=== PATIENT | male | born 1980 | race Caucasian/White ===

== ENCOUNTER 2021-01-22 11:44 | Emergency (ER) | payer OTHER ==
--- NOTE | 2021-01-22 13:32 | Event Note ---
ED Screening Note Date of service: 01/22/21 Time: 13:29 ED Screening Note: 40-year-old male patient with history of tobacco use, "borderline hypertension," and "blockage in the heart" presents emergency department with complaints of intermittent chest pain for 1 month. Patient states the pain worsened this morning. Pain is described as "sharp," localized to the right side of the chest, reproducible with certain movements and deep inhalation. No venous thromboembolism risk factors identified on history. Patient is not anticoagulated. Patient was previously under the care of a organizational research consultant and states the "blockage in his heart resolved with diet and natural supplements." General: Awake, appropriately interactive, no acute distress. Neck: Supple. Full range of motion intact. Cardiovascular: Normal peripheral perfusion. Chest pain is not reproducible. Pulmonary: No respiratory distress. Patient is speaking normally without use of accessory muscles. Skin: No apparent rashes or lesions. Neurological: No facial asymmetry. Speech is clear. Follows commands. Patient is alert and oriented. Musculoskeletal: Moves all four extremities spontaneously with normal range of motion. Psych: Cooperative. Appropriate mood and affect. I have greeted and performed a focused rapid initial assessment of this patient. A comprehensive ED assessment and evaluation of the patient, analysis of all test results, and completion of the medical decision-making process will be conducted by additional ED providers. This initial assessment/diagnostic orders/clinical plan/treatment(s) is/are subject to change based on patients health status, clinical progression and re-assessment. Further treatment and workup at subsequent clinical provider's discretion. Patient/guardian urged not to elope from the ED as their condition may be serious if not clinically assessed and managed.
[2021-01-22 14:12] LABS: Alanine Aminotransferase 13 units/L (7-56); Albumin 4.5 g/dL (3.9-5); BUN/Creatinine Ratio 9; Blood Urea Nitrogen 9 mg/dL (9-20); Calcium 9.1 mg/dL (8.4-10.2); Hemolysis Index 7
--- NOTE | 2021-01-22 14:19 | XRay Report ---
CHEST 2 VIEWS INDICATION / CLINICAL INFORMATION: Chest pain. COMPARISON: None available. FINDINGS: SUPPORT DEVICES: None. HEART / MEDIASTINUM: The heart size and pulmonary vasculature are normal. The aorta is normal in daiana anya. LUNGS / PLEURA: The lungs are mildly hyperinflated without other significant abnormality. No pneumoth orax. ADDITIONAL FINDINGS: No significant additional findings. IMPRESSION: Mild nonspecific hyperinflation of the lungs raises the possibility of asthma. Signer Name: Maico Jose MD Signed: 01/22/2021 2:15 PM Workstation Name: [id number]
[2021-01-22 14:21] LABS: Basophils # (Auto) 0.1 K/mm3 (0.0-0.1); Eosinophils # (Auto) 0.1 K/mm3 (0.0-0.4); Eosinophils % (Auto) 2.4 % (0.0-4.3); Hematocrit 42.1 % (35.5-45.6); Hemoglobin 14.2 gm/dl (11.8-15.2); Lymphocytes # (Auto) 1.4 K/mm3 (1.2-5.4); Lymphocytes % (Auto) 26.2 % (13.4-35.0); Mean Corpuscular HGB Conc 34 % (32-34); Mean Corpuscular Volume 93 fl (84-94); Monocytes # (Auto) 0.5 K/mm3 (0.0-0.8); Monocytes % (Auto) 9.3 % (0.0-7.3); Platelet Count 256 K/mm3 (140-440); Red Blood Count 4.53 M/mm3 (3.65-5.03); Red Cell Distribution Width 12.5 % (13.2-15.2)
[2021-01-22 18:56] LABS: INR 1.02 (0.87-1.13)
[2021-01-22 18:57] LABS: Partial Thromboplastin Time 35.4 Sec. (24.2-36.6)
--- NOTE | 2021-01-22 18:57 | Emergency Department Report ---
ED Chest Pain HPI - General Chief Complaint: Chest Pain Stated Complaint: CHEST PAIN/RT SIDE &WRIST PAIN Time Seen by Provider: 01/22/21 18:14 Source: patient Mode of arrival: Ambulatory Limitations: No Limitations - History of Present Illness Initial Comments: 40-year-old male presents to ED with complaint of chest pain x1 month. Patient states pain is right-sided, worse with movement of torso. Patient states at one time, the pain had a pleuritic nature, but that pleuritic component has resolved. He denies any fever, cough, shortness of breath. Patient reports some pain to the left lower leg. He denies any history of blood clots in the past. Patient states of his symptoms began after he received his second dose of his Covid vaccine. MD Complaint: chest pain -: month(s) (1) Onset: during rest Pain Location: right chest Pain Radiation: none Severity: mild Severity scale (0 -10): 6 Quality: sharp Consistency: intermittent Improves With: remaining still Worsens With: inspiration, movement re: denies: nausea, vomting, diaphoresis, dyspnea Other Symptoms: denies: cough, fever, leg swelling - Related Data Allergies Allergy/AdvReac Type Severity Reaction Status Date / Time aspirin Allergy Swelling Verified 01/22/21 11:51 Heart Score - HEART Score History: Slightly suspicious EKG: Normal Age: < 45 Risk factors: 1-2 risk factors Troponin: < normal limit HEART Score: 1 - EKG Read Time Time EKG Completed: 11:52 EKG Read Time: 11:55 ED Review of Systems ROS: Stated complaint: CHEST PAIN/RT SIDE &WRIST PAIN Other details as noted in HPI Comment: All other systems reviewed and negative Constitutional: denies: chills, fever Respiratory: denies: cough, shortness of breath Cardiovascular: chest pain Musculoskeletal: other (Patient reports left lower leg pain, denies swelling) ED Past Medical Hx - Past Medical History Hx GERD: Yes Additional medical history: IBS/ HEMRRHOIDS - Surgical History Additional Surgical History: KNEE - Social History Smoking Status: Former Smoker Substance Use Type: Alcohol ED Physical Exam - General Limitations: No Limitations General appearance: alert, in no apparent distress - Head Head exam: Present: atraumatic, normocephalic - Eye Eye exam: Present: normal appearance, EOMI - ENT ENT exam: Present: mucous membranes moist - Neck Neck exam: Present: normal inspection - Respiratory Respiratory exam: Present: normal lung sounds bilaterally. Absent: respiratory distress - Cardiovascular Cardiovascular Exam: Present: regular rate, normal rhythm - GI/Abdominal GI/Abdominal exam: Present: soft. Absent: distended, tenderness - Extremities Exam Extremities exam: Present: normal inspection, calf tenderness (Very mild, left- sided). Absent: pedal edema - Neurological Exam Neurological exam: Present: alert, oriented X3 - Psychiatric Psychiatric exam: Present: normal affect, normal mood - Skin Skin exam: Present: warm, dry, intact, normal color ED Course Vital Signs 01/22/21 01/22/21 01/22/21 11:51 18:13 18:14 Temperature 98.3 F Pulse Rate 85 57 L Respiratory 20 16 16 Rate Blood Pressure 139/82 Blood Pressure 150/86 [Right] O2 Sat by Pulse 96 99 100 Oximetry 01/22/21 19:48 Temperature Pulse Rate 86 Respiratory 18 Rate Blood Pressure Blood Pressure 141/77 [Right] O2 Sat by Pulse 98 Oximetry ED Medical Decision Making - Lab Data Result diagrams: 01/22/21 13:36 01/22/21 13:36 - EKG Data -: EKG Interpreted by Mi EKG shows normal: sinus rhythm, QRS complexes, ST-T waves Rate: normal - EKG Data Interpretation: no acute changes, other (LAFB) - Radiology Data Radiology results: report reviewed, image reviewed - Medical Decision Making 40-year-old male presents ED with chest pain. EKG is unremarkable. Troponin and D-dimer are both negative. Chest x-ray shows no acute findings. Vital signs stable. Pain is likely musculoskeletal. She will be discharged at this time. Outpatient follow-up advised, return precautions given. - Differential Diagnosis ACS, PE, pneumonia, chest wall pain Critical care attestation.: If time is entered above; I have spent that time in minutes in the direct care of this critically ill patient, excluding procedure time. ED Disposition Clinical Impression: Chest wall pain Disposition: - TO HOME OR SELFCARE Is pt being admited?: No Condition: Stable Instructions: Chest Wall Pain, [id number], Nonspecific Chest Pain, Adult, [id number] Referrals: [facility] [Other] - 3-5 Days PRIMARY CARE, [Referring] - 3-5 Days Time of Disposition: 19:02
[2021-01-22 19:49] VITALS: BP 141/77
--- NOTE | 2021-01-24 10:12 | Electrocardiograph Report ---
[facility] Test Date: 2021-01-22 Test Time: 11:52:32 Pat Name: ADAM CLEMENS Department: Room: Gender: M Manufacturing Executive: DANIELLE : 1980 Requested By: ED DOC Order Number: [id number] Reading MD: Benton Edmonds Measurements Intervals [place] Rate: 71 P: 61 CT: 146 QRS: -63 QRSD: 97 T: 43 QT: 360 QTc: 393 Interpretive Statements Sinus arrhythmia Left anterior fascicular block Low voltage, precordial leads Abnrm R prog, consider ASMI or lead placement No previous ECG available for comparison Electronically Signed On 01-24-2021 10:11:31 EDT by Benton Edmonds
== END 2021-01-22 19:49 | disposition home or self-care (01) ==
LOC: ED 11:44
DX: R07.89 Other chest pain (principal); K21.9 Gastro-esophageal reflux disease without esophagitis; Z98.890 Other specified postprocedural states; Z87.891 Personal history of nicotine dependence; Z88.6 Allergy status to analgesic agent
CPT/HCPCS: 36415; 71046; 80053; 83735; 84484; 85025; 85379; 85610; 85730; 93005